=== PATIENT | male | born 1935 | race Caucasian/White ===

== ENCOUNTER 2016-06-29 16:07 | Inpatient (IN) | payer OTHER ==
[2016-06-29] MEDS ORDERED: NS 1,000 ML IV ONE (16:56)
[2016-06-29] MEDS ORDERED: TYLENOL PO PRN (16:56)
[2016-06-29] MEDS ORDERED: ZOFRAN IV PRN (16:56)
[2016-06-29] MEDS ORDERED: PLENDIL PO ONE (17:46)
[2016-06-29 19:08] LABS: URINE CULTURE NEEDED? NO; URINE MICRO REVIEW NEEDED? NO; URINE SOURCE CLEAN CATCH
[2016-06-29 19:15] LABS: BILIRUBIN URINE NEGATIVE (NEGATIVE); BLOOD URINE NEGATIVE (NEGATIVE); COLOR YELLOW; GLUCOSE URINE NEGATIVE (NEGATIVE); LEUKOCYTES URINE NEGATIVE (NEGATIVE); NITRITE URINE NEGATIVE (NEGATIVE); PROTEIN URINE NEGATIVE (NEGATIVE); TURBIDITY URINE CLEAR (CLEAR); UROBILINOGEN URINE NORMAL (NORMAL)
[2016-06-29 19:16] LABS: UR EPITHELIAL CELLS <10 /HPF (<10); URINE BACTERIA NEGATIVE /HPF; URINE RBC <10 /HPF (<10); URINE WBC <10 /HPF (<10)
[2016-06-29] MEDS: LOVENOX SUBQ SCH (19:16)
[2016-06-29] MEDS: NS 1,000 ML IV SCH (19:50)
[2016-06-29] MEDS: COREG PO SCH (23:03)
[2016-06-29] MEDS: CRESTOR PO SCH (23:03)
[2016-06-30] MEDS: NS 1,000 ML IV SCH (06:01)
[2016-06-30 06:02] LABS: CALCIUM 8.8 mg/dL (8.8-10.2); POTASSIUM 5.3 mmol/L (3.5-5.1)
[2016-06-30] MEDS: IMDUR PO SCH (09:48)
[2016-06-30] MEDS: ASPIRIN PO SCH (09:48)
[2016-06-30] MEDS: COZAAR PO SCH (09:49)
--- NOTE | 2016-06-30 09:49 | PROGRESS NOTE ---
DATE: 06/30/2016 SUBJECTIVE: Mr. Foley was admitted to [facility] with acute on chronic renal failure. His baseline creatinine runs in the range of 1.4-1.5. He had blood work drawn yesterday which demonstrated a creatinine of 3.6. He reports that he has been voiding normally; he has not been voiding excessively. He does take Motrin for joint pains on a p.r.n. basis. He did have a CT scan in May. His blood pressure is trending upward. Systolic blood pressures are ranging from 171-191, whereas his diastolic blood pressures are ranging from 57-71. Renal function is trending down. This morning, his BUN was 48 and his creatinine was 3.2. OBJECTIVE: Vital signs: Temperature 98.2 degrees, pulse 50, respirations 18, BP 191/71. CV: Regular rate and rhythm. Lungs: Clear. Abdomen: Soft, nontender, with active bowel sounds. Extremities: Trace ankle edema. ASSESSMENT AND PLAN: 1. Hypertension. His blood pressure is too high. He is currently taking Coreg 6.25 mg b.i.d. and losartan 100 mg daily. I am going to add Aldomet 250 mg b.i.d. I really do not want to add an MADDY inhibitor given his renal insufficiency. He has had fluid retention issues on calcium channel blockers like Norvasc in the past. 2. Acute on chronic renal failure. We will continue fluid resuscitation, and we will schedule him for an ultrasound of the kidneys today. I will recheck a basic metabolic panel in the morning.
[2016-06-30] MEDS: CARDURA PO SCH (09:51)
[2016-06-30] MEDS: ALDOMET PO SCH ×2 (09:51→20:40)
[2016-06-30] MEDS: COREG PO SCH ×2 (09:53→20:40)
--- NOTE | 2016-06-30 09:55 | Diag Imaging Result Document ---
PROCEDURE NAME: US RENAL 2 (RETROPER) COMPLETE - 06/30/2016 BILATERAL RENAL ULTRASOUND: COMPARISON: No comparison exam. FINDINGS: The right kidney measures 14.5 cm in length by 7.5 cm in diameter. The left kidney measures 14.3 cm in length by 7.2 cm in diameter. There is severe bilateral hydronephrosis. The urinary bladder is substantially distended. There is apparent degree in the urinary bladder lumen. There is no discrete solid renal mass or stone identified. IMPRESSION: Severe bilateral hydronephrosis. Substantially distended urinary bladder. Apparent debris in urinary bladder lumen. Verbal results provided to Dr. Guevara, who is covering for Dr. Rollins, at 9:38 a.m. on 06/30/2016.
[2016-06-30] MEDS: LOVENOX SUBQ SCH (17:36)
[2016-06-30] MEDS: CRESTOR PO SCH (20:40)
[2016-06-30] MEDS: FLOMAX PO SCH (20:42)
[2016-07-01] MEDS: NS 1,000 ML IV SCH ×3 (00:30→09:56)
--- NOTE | 2016-07-01 05:13 | CONSULTATION ---
DATE OF CONSULTATION: 06/30/2016 CONSULTING PHYSICIAN: Dr. Diaz Guevara. REASON FOR CONSULTATION: Consultation for bilateral hydronephrosis. HISTORY OF PRESENT ILLNESS: A 80-year-old male who denies history of prostatic troubles, who was admitted with acute kidney injury. He does report nocturia x1 and occasional hesitancy. He reports he has been told before by Dr. Rollins during annual examination that his prostate was mildly enlarged. He has had 1 UTI in his lifetime that he is aware of. He denies urinary incontinence, gross hematuria, flank pain, recurrent infections. When Ivy catheter was placed, reportedly 3 L came out. Renal ultrasound was obtained in the morning of 06/30/2016 revealing a significantly dilated bladder and bilateral hydronephrosis. PAST MEDICAL HISTORY: 1. Hypertension. 2. Hyperlipidemia. 3. Allergic rhinitis. PAST SURGICAL HISTORY: Vasectomy. HOME MEDICATIONS: Losartan/hydrochlorothiazide, aspirin, Colace, Coreg, Crestor, Imdur, Cardura 2 mg at bedtime, and [place]. SOCIAL HISTORY: He reports smoking a pipe for a number years. Denies alcohol or drug use. ALLERGIES: No known drug allergies. FAMILY HISTORY: He has had a father with prostate cancer who of other causes. He has had a brother with reported bladder cancer. REVIEW OF SYSTEMS: Reviewed in 12 systems and negative except as in the HPI. PHYSICAL EXAMINATION: Vital Signs: T 97.3 degrees, P 68, BP 143/77. General: No acute distress. HEENT: Normocephalic and atraumatic. Cardiovascular: Regular rhythm. Pulmonary: Bilateral breath sounds. Abdomen: Nontender, nondistended. : Uncircumcised male, testes descended bilaterally, mildly atrophic. Rectal: Digital rectal examination, approximately 40 g prostate gland, somewhat firm to palpation but no discrete nodules. Lymphatic: No groin lymphadenopathy. Dermatologic: No obvious skin rashes. Neurologic: Alert and oriented x3. Psychiatric: Appropriate mood and affect. PERTINENT LABS: Creatinine of 3.2. His urinalysis showed no evidence of UTI. PERTINENT IMAGES: Renal ultrasound on 06/30/2016 as stated in the HPI. ASSESSMENT AND PLAN: A 80-year-old male with urinary retention which is likely due to longstanding benign prostatic hyperplasia that was not symptomatic. I have discussed with the patient his renal ultrasound findings and the significance of such a large amount of urine drained. We discussed keeping Ivy catheter in until kidney function normalizes as he will also likely have postobstructive diuresis. We have also discussed initiation of Flomax 0.4 mg twice a day as Cardura 2 mg is a very small dose to affect his urinary symptoms. Side effects were explained. He is in agreement. PLAN: 1. I agree with Ivy catheter for now. Recommend monitoring for postobstructive diuresis. 2. Flomax 0.4 mg b.i.d. Thank you for the consultation.
[2016-07-01 06:56] LABS: CALCIUM 8.7 mg/dL (8.8-10.2); POTASSIUM 4.7 mmol/L (3.5-5.1)
[2016-07-01] MEDS: ASPIRIN PO SCH (09:58)
[2016-07-01] MEDS: COREG PO SCH ×2 (09:58→20:38)
[2016-07-01] MEDS: COZAAR PO SCH (09:58)
[2016-07-01] MEDS: FLOMAX PO SCH ×2 (09:58→20:38)
[2016-07-01] MEDS: ALDOMET PO SCH ×2 (09:58→20:40)
[2016-07-01] MEDS: CARDURA PO SCH (09:58)
[2016-07-01] MEDS: IMDUR PO SCH (09:58)
--- NOTE | 2016-07-01 10:57 | PROGRESS NOTE ---
DATE: 07/01/2016 SUBJECTIVE: Mr. Foley was admitted to [facility] with acute renal failure superimposed on chronic renal failure. He has a baseline creatinine of 1.3 to 1.5. His BUN and creatinine this morning were 44 and 3.0. On admission his BUN and creatinine were 69 and 3.6. Ultrasound of the kidneys demonstrated bilateral hydronephrosis and a grossly distended bladder. A Ivy catheter has been placed and he has had urine output in excess of 3500 mL. His blood pressure is trending down but is still a little bit too high. OBJECTIVE: Vital signs: This morning his blood pressure was 170/52, temperature 98.1 degrees, pulse 60, respirations 20, BP 170/52. CV: Regular rate and rhythm. Lungs: Clear. Abdomen: Soft, nontender, with active bowel sounds. ASSESSMENT AND PLAN: 1. Hypertension. We just added Aldomet 250 mg b.i.d. and I will not adjust that dosage this morning as he has had readings in the 140s during the night. We will continue the Aldomet 250 mg b.i.d. in combination with the losartan 100 mg daily, Cardura, and Coreg. 2. Acute on chronic renal failure secondary to postobstructive phenomenon due to benign prostatic hypertrophy. We will maintain the Ivy catheter until his creatinine has returned to baseline. We will continue to monitor strict I's and O's. If his creatinine continues to improve we will plan to send him home in the morning. I talked to Dr. Khan this morning. The hematuria is an expected finding and in his opinion should resolve spontaneously. We will plan on hopefully getting the Ivy out by Saturday of this week as an outpatient. I will recheck a BMP in the morning.
--- NOTE | 2016-07-01 12:36 | PROGRESS NOTE ---
DATE: 07/01/2016 SUBJECTIVE: Mr. Foley reports a decent night overnight. He denies significant catheter discomfort. OBJECTIVE: Vital Signs: T 98.1 degrees, P 60, BP 170/52. General: No acute distress. Abdomen: Nontender, nondistended. : Ivy catheter in place, draining pink urine, no clots. PERTINENT LABS: Creatinine of 3 down from 3.2. He has made 6 L of urine overnight. His sodium was 141, which is unchanged. ASSESSMENT: This is a 80-year-old male with acute kidney injury and urinary retention with bilateral hydronephrosis, who is now managed with Ivy drainage. I have discussed with the patient that we would not attempt voiding trial until Saturday or of next week. I have discussed that with Dr. Rollins in person as well. He is on Flomax twice a day and will go home with a prescription for 1. PLAN: 1. Monitor urine output. 2. Keep Ivy catheter in. He will be discharged home with 1. 3. Will plan for a voiding trial on , 07/05/2016.
[2016-07-01] MEDS: LOVENOX SUBQ SCH (17:59)
[2016-07-01] MEDS: CRESTOR PO SCH (20:42)
[2016-07-02] MEDS: NS 1,000 ML IV SCH ×3 (00:08→06:03)
[2016-07-02] MEDS ORDERED: COREG PO ONE (03:27)
--- NOTE | 2016-07-02 05:52 | EKG Report ---
Test Performed on : 07/02/2016 03:08:58 AM Test Reason : Chest pain Blood Pressure : / mmHG Vent. Rate : 070 BPM Atrial Rate : 070 BPM P-R Int : 190 ms QRS Dur : 098 ms QT Int : 412 ms P-R-T Axes : 029 -17 024 degrees QTc Int : 444 ms Normal sinus rhythm. Minimal voltage criteria for LVH, may be normal variant Nonspecific ST and T wave abnormality inferior III Borderline ECG No previous ECGs available Confirmed by Angelito Ghosh DO ([id number]) on 07/02/2016 12:58:42 PM
[2016-07-02 08:12] LABS: CALCIUM 8.5 mg/dL (8.8-10.2); POTASSIUM 4.5 mmol/L (3.5-5.1)
[2016-07-02 08:21] VITALS: BP 163/49
[2016-07-02] MEDS ORDERED: ALDOMET PO SCH (09:00)
[2016-07-02] MEDS ORDERED: CARDURA PO SCH (09:00)
[2016-07-02] MEDS: FLOMAX PO SCH (09:44)
[2016-07-02] MEDS: COREG PO SCH (09:45)
[2016-07-02] MEDS: ASPIRIN PO SCH (09:46)
[2016-07-02] MEDS: IMDUR PO SCH (09:46)
[2016-07-02] MEDS: COZAAR PO SCH (09:46)
--- NOTE | 2016-08-16 19:06 | DISCHARGE SUMMARY ---
ADMISSION DATE: 06/29/2016 DISCHARGE DATE: 07/02/2016 DISCHARGE DIAGNOSES: 1. Acute renal failure superimposed on chronic renal failure. 2. Ischemic heart disease. 3. Hypertension. 4. History of mixed hyperlipidemia. 5. Metabolic syndrome. 6. Acute renal failure secondary to BPH with hydronephrosis. DISCHARGE INSTRUCTIONS: 1. Return to clinic in one week to see me Dr. Jomar Rollins. 2. Activity as tolerated. 3. Healthy heart diet. MEDICATIONS: 1. Aspirin 81 mg daily. 2. Coreg 6.25 mg b.i.d. 3. Cardura 8 mg daily. 4. Imdur 50 mg daily. 5. Losartan 100 mg daily. 6. Aldomet 500 mg b.i.d. 7. Crestor 10 mg at bedtime. 8. Flomax 0.4 mg daily. 9. Aspirin 81 mg daily. 10. 180 mg daily. DISCHARGE PHYSICAL EXAMINATION: This is a well-developed, well-nourished, 80-year-old gentleman in no apparent distress. He is afebrile. Vital signs are stable. Cardiovascular: Regular rate and rhythm. Lungs: Clear. Abdomen: Soft and nontender with active bowel sounds. HOSPITAL COURSE: Mr. Foley has a longstanding history of chronic renal insufficiency. His baseline creatinine runs in the 1.6-1.8 range. Routine blood work had been obtained, and he was noted to have a creatinine of 3.6. The patient was [facility] further evaluation and management of the acute on chronic renal failure. We stopped his diuretics. We tried to stop medicines which were nephrotoxic. We obtained a renal ultrasound, which demonstrated bilateral hydronephrosis. We felt that the hydronephrosis was due to BPH. We increased the Cardura to 8 mg daily and added Flomax. Dr. Khan was consulted to see the patient and placed a Ivy catheter. He had good urine output and his creatinine had dropped to 3 at the time of discharge. We opted to keep the Ivy in place given the significant BPH and hydronephrosis, and will recheck a BMP the week after discharge. If his kidney function has normalized or nearly normalized to his baseline, then we would be able to stop the Ivy.
== END 2016-07-02 11:45 | disposition home or self-care (01) | DRG 684 ==
LOC: DIRADM 16:07 → 4N 16:50
PROVIDERS: ADMIT Internal Medicine; ATTEND Internal Medicine
DX: N17.9 Acute kidney failure, unspecified (principal); I12.9 Hypertensive chronic kidney disease with stage 1 through stage 4 chronic kidney disease, or unspecified chronic kidney disease; N13.30 Unspecified hydronephrosis; N40.1 Benign prostatic hyperplasia with lower urinary tract symptoms; R33.8 Other retention of urine; N18.9 Chronic kidney disease, unspecified; I25.10 Atherosclerotic heart disease of native coronary artery without angina pectoris; R73.03 Prediabetes; E78.2 Mixed hyperlipidemia; J30.9 Allergic rhinitis, unspecified; Z79.899 Other long term (current) drug therapy; Z79.82 Long term (current) use of aspirin; Z82.49 Family history of ischemic heart disease and other diseases of the circulatory system; Z80.42 Family history of malignant neoplasm of prostate; Z83.3 Family history of diabetes mellitus; Z80.52 Family history of malignant neoplasm of bladder
CPT/HCPCS: 76770; 80048; 81001; 84153; 93005; 93010; J1650; J7030